=== PATIENT | female | born 1950 | race Two or more races ===

== ENCOUNTER 2018-07-30 18:06 | Inpatient (IN) | payer MEDICARE, MEDICAID ==
[~2018-07-30] VITALS: Ht 129.5 cm; Wt 60.3 kg
[2018-07-30] MEDS ORDERED: DILTIAZEM HCL 25 MG/5 ML VIAL IV ONE (20:00)
[2018-07-30 20:20] LABS: Eosinophils # (auto) 0.1 uL; Eosinophils % (auto) 0.7 % (0.0-7.0)
[2018-07-30 20:22] LABS: Basophils # (auto) 0 uL; Basophils % (auto) 0.4 % (0.0-2.0); Hematocrit 45.1 % (36.0-46.0); Hemoglobin 14.4 g/dL (12.2-16.2); Lymphocytes # (auto) 2.3 uL; Lymphocytes % (auto) 25.5 % (10.0-50.0); Mean Corpuscular Hemoglobin 26.3 pg (28.0-32.0); Mean Corpuscular Hgb Conc. 31.9 g/dL (32.0-36.0); Mean Corpuscular Volume 82.5 fL (80.0-100.0); Monocytes # (auto) 1.1 uL; Monocytes % (auto) 12.7 % (0.0-12.0); Neutrophils # (auto) 5.5 uL; Neutrophils % (auto) 60.7 % (37.0-80.0); Nucleated Red Blood Cells % 0.1 %; Platelet Count (auto) 254 10^3/uL (140-450); Red Blood Cells 5.47 10^6/uL (4.0-5.20); Red Cell Distribution Width 15.7 % (11.8-14.3)
[2018-07-30 20:33] LABS: Chloride 111 mmol/L (98-107); Potassium 3.9 mmol/L (3.5-5.1); Sodium 140 mmol/L (136-145)
[2018-07-30 20:39] LABS: Alanine Aminotransferase 24 U/L (13-56); Albumin 3.4 g/dL (3.4-5.0); Alkaline Phosphatase 68 U/L (45-117); Anion Gap 8 (5-15); Aspartate Aminotransferase 11 U/L (15-37); BUN/Creatinine Ratio 18.3; Bilirubin, Total 0.7 mg/dL (0.2-1.0); Blood Urea Nitrogen 17 mg/dL (7-18); Calcium 9.3 mg/dL (8.5-10.1); Carbon Dioxide 21 mmol/L (21-32); GFR African American 77 mL/min; GFR Non-African American 64 mL/min; Glucose 96 mg/dL (74-106); Total Protein 7.7 g/dL (6.4-8.2)
[2018-07-30] MEDS ORDERED: AZITHROMYCIN 500MG/ 250ML 250 ML IV ONE (20:45)
[2018-07-30 23:59] LABS: Urine Bacteria FEW /hpf (None Seen); Urine Blood 1+ /uL (Negative); Urine Mucus FEW (None Seen); Urine Specific Gravity 1.022 (1.001-1.035); Urine WBC 8 /hpf (0 - 5)
[2018-07-31] MEDS ORDERED: ONDANSETRON HCL 4 MG/2 ML VIAL IV PRN (00:30)
[2018-07-31] MEDS ORDERED: ALBUTEROL SULF 2.5 MG/0.5ML(0.5%) NEB SOLN NEB ONE (00:30)
[2018-07-31] MEDS ORDERED: ACETAMINOPHEN 325 MG TAB PO PRN (00:30)
[2018-07-31] MEDS ORDERED: cefTRIAXone 1GM/50ML D5W 50 ML IV ONE (00:30)
[2018-07-31] MEDS ORDERED: IPRATROPIUM BROM 0.5 MG/2.5ML INH SOL NEB ONE (00:30)
[2018-07-31] MEDS ORDERED: MORPHINE SULFATE 4 MG/ML SYR/VIAL IV PRN (00:30)
[2018-07-31 01:45] VITALS: BP 132/80
[2018-07-31] MEDS: ALBUTEROL SULF 2.5 MG/0.5ML(0.5%) NEB SOLN NEB SCH ×4 (05:23→18:00)
[2018-07-31] MEDS: IPRATROPIUM BROM 0.5 MG/2.5ML INH SOL NEB SCH ×3 (05:24→18:00)
[2018-07-31 07:30] LABS: Basophils # (auto) 0 uL; Eosinophils # (auto) 0.1 uL; Neutrophils # (auto) 4.3 uL
[2018-07-31 07:31] LABS: Basophils % (auto) 0.3 % (0.0-2.0); Eosinophils % (auto) 0.9 % (0.0-7.0); Hematocrit 39.2 % (36.0-46.0); Hemoglobin 12.9 g/dL (12.2-16.2); Lymphocytes # (auto) 2.5 uL; Lymphocytes % (auto) 31.5 % (10.0-50.0); Mean Corpuscular Hemoglobin 26.2 pg (28.0-32.0); Mean Corpuscular Hgb Conc. 32.9 g/dL (32.0-36.0); Mean Corpuscular Volume 79.5 fL (80.0-100.0); Monocytes % (auto) 12.8 % (0.0-12.0); Neutrophils % (auto) 54.5 % (37.0-80.0); Platelet Count (auto) 276 10^3/uL (140-450); Red Blood Cells 4.93 10^6/uL (4.0-5.20); Red Cell Distribution Width 15.4 % (11.8-14.3); White Blood Cell 7.8 10^3/uL (4.4-10.8)
[2018-07-31 07:48] LABS: Calcium 8.5 mg/dL (8.5-10.1); Potassium 3.6 mmol/L (3.5-5.1)
[2018-07-31 07:52] LABS: BUN/Creatinine Ratio 23.2
[2018-07-31] MEDS ORDERED: ASPirin 81 mg TAB ONE (08:39)
[2018-07-31] MEDS: LOSARTAN POTASSIUM 50 MG TAB PO SCH (08:58)
[2018-07-31] MEDS: AMIODARONE HCL 200 MG TAB PO SCH (08:58)
[2018-07-31] MEDS: ASPirin-EC 81 mg tab PO SCH (08:58)
[2018-07-31] MEDS: FAMOTIDINE 20 MG TAB PO SCH ×2 (08:58→22:19)
[2018-07-31] MEDS: cefTRIAXone 1GM/50ML D5W 50 ML IV SCH (09:02)
[2018-07-31] MEDS ORDERED: CARVEDILOL 3.125 MG TAB PO SCH (10:00)
--- NOTE | 2018-07-31 14:49 | NUR ---
Telemetry admit from ER TAN GUTIERREZ admitted to Telemetry unit after SBAR received. Patient oriented to ALLYSON kennedy RN, unit, room, bed, and unit policies regarding patient care and visiting hours. Patient now on continuous telemetry monitoring, tele box # 21 and telemetry reading on arrival to unit is Aflutter with a heart rate of 84. Patient encouraged to call if they need something. All questions and concerns addressed, patient verbalized understanding.
[2018-07-31 15:00] VITALS: BP 129/73
[2018-07-31] MEDS ORDERED: AZITHROMYCIN 250 MG TAB PO ONE (16:45)
--- NOTE | 2018-07-31 16:45 | NUR ---
MD CARRILLO AT BEDSIDE. NO NEW ORDERS AT THIS TIME.
--- NOTE | 2018-07-31 16:55 | NUR ---
Spoke with patient family Son Rocky, requested password: Rocky. Updated on patient status, all questions and concerns addressed. Asked patient son to bring in home medications, son verbalized understanding and stated he will be here to visit the patient around 7pm. Will continue to monitor.
[2018-07-31 17:00] VITALS: BP 140/78
--- NOTE | 2018-07-31 18:30 | NUR ---
RT NOTE: PT SITTING UPRIGHT IN BED WITH NO DISTRESS NOTED. PT DENIES SOB, PT ON ROOM AIR SPO2 96%. RR 16. PT STATED SHE WANTS TO HOLD THIS TX AND WILL TAKE THE NEXT SCHEDULED TX
--- NOTE | 2018-07-31 18:35 | NUR ---
SPOKE WITH PATIENT FAMILY, STATED THEY WILL BRING MEDICATION TOMORROW MORNING.
--- NOTE | 2018-07-31 19:35 | NUR ---
Opening Shift Note Assumed care of patient, awake and alert oriented x4. No S/S of distress/SOB noted. Bed is in lowest locked position with bed rails up x2 and call light is within reach of the patient. Instructed on POC and to call for assist PRN.
[2018-07-31 22:00] VITALS: BP 17/94
[2018-07-31] MEDS ORDERED: PATIENTS OWN MEDICATION (eliquis 5 MG) PO SCH (22:00)
[2018-07-31] MEDS: CARVEDILOL 3.125 MG TAB PO SCH (22:20)
[2018-07-31] MEDS: APIXABAN 5 MG TAB PO SCH (22:20)
[2018-08-01] MEDS: IPRATROPIUM BROM 0.5 MG/2.5ML INH SOL NEB SCH ×4 (00:59→18:59)
[2018-08-01] MEDS: ALBUTEROL SULF 2.5 MG/0.5ML(0.5%) NEB SOLN NEB SCH ×7 (00:59→18:59)
--- NOTE | 2018-08-01 01:00 | NUR ---
Patient placed on 2 liters Nasal cannula: Patient was having some wheezes and cough so patient placed on two liters nasal cannula for comfort. No S/S of distress or SOB at this time.
[2018-08-01 05:00] VITALS: BP 129/87
[2018-08-01 06:49] LABS: Basophils # (auto) 0 uL; Basophils % (auto) 0.3 % (0.0-2.0); Eosinophils # (auto) 0.1 uL; Lymphocytes # (auto) 2.7 uL; Monocytes # (auto) 0.7 uL; Nucleated Red Blood Cells % 0.1 %
[2018-08-01 06:52] LABS: Anion Gap 9 (5-15); BUN/Creatinine Ratio 17.2; Blood Urea Nitrogen 17 mg/dL (7-18); Calcium 8.4 mg/dL (8.5-10.1); Carbon Dioxide 22 mmol/L (21-32); Chloride 109 mmol/L (98-107); GFR African American 72 mL/min; GFR Non-African American 59 mL/min; Glucose 119 mg/dL (74-106); Hematocrit 39.7 % (36.0-46.0); Hemoglobin 12.7 g/dL (12.2-16.2); Lymphocytes % (auto) 31.8 % (10.0-50.0); Mean Corpuscular Hemoglobin 25.8 pg (28.0-32.0); Mean Corpuscular Volume 80.6 fL (80.0-100.0); Monocytes % (auto) 8.4 % (0.0-12.0); Neutrophils # (auto) 4.9 uL; Neutrophils % (auto) 58.5 % (37.0-80.0); Platelet Count (auto) 287 10^3/uL (140-450); Potassium 3.9 mmol/L (3.5-5.1); Red Blood Cells 4.92 10^6/uL (4.0-5.20); Red Cell Distribution Width 15.6 % (11.8-14.3); Sodium 140 mmol/L (136-145); White Blood Cell 8.4 10^3/uL (4.4-10.8)
--- NOTE | 2018-08-01 06:58 | NUR ---
Closing note: Patient is resting in bed awake alert oriented x4. No s/s of distress sob noted. Bed is in lowest locked position with bed rails up x2 and call light is within reach of the patient. Will endorse care to day shift nurse.
--- NOTE | 2018-08-01 07:50 | NUR ---
Opening Shift Note Assumed care of patient, patient is awake, alert, and oriented x4, however patient has periods of confusion. Speech is slightly slurred and patient is rambling. No S/S of distress/SOB, or pain noted. Bed is in lowest locked position with bed rails up x2 and call light is within reach of the patient. Discussed POC with patient, patient verbalized understanding. Will continue to monitor q1 hour and prn.
[2018-08-01 09:00] VITALS: BP 127/78
[2018-08-01] MEDS: cefTRIAXone 1GM/50ML D5W 50 ML IV SCH (09:04)
[2018-08-01] MEDS: APIXABAN 5 MG TAB PO SCH ×2 (11:08→22:50)
[2018-08-01] MEDS: AZITHROMYCIN 250 MG TAB PO SCH (11:09)
[2018-08-01] MEDS: CARVEDILOL 3.125 MG TAB PO SCH ×2 (11:10→22:50)
[2018-08-01] MEDS: ASPirin-EC 81 mg tab PO SCH (11:11)
[2018-08-01] MEDS: FAMOTIDINE 20 MG TAB PO SCH ×2 (11:11→22:50)
[2018-08-01] MEDS: AMIODARONE HCL 200 MG TAB PO SCH (11:11)
[2018-08-01] MEDS: LOSARTAN POTASSIUM 50 MG TAB PO SCH (11:12)
--- NOTE | 2018-08-01 12:00 | NUR ---
MED REC FAMILY AT BEDSIDE. TO HER SON BROUGHT IN PATIENT MEDICATIONS. MED REC COMPLETED. DISCUSSED POC WITH PATIENT AND PATIENT FAMILY. PATIENT AND FAMILY VERBALIZED UNDERSTANDING. WILL CONTINUE TO MONITOR Q1 HOUR AND PRN.
[2018-08-01 13:23] VITALS: BP 123/75
[2018-08-01] MEDS ORDERED: SPIR25TA8 PO (15:32)
[2018-08-01] MEDS ORDERED: SIMV-13 PO (15:32)
[2018-08-01] MEDS ORDERED: CARV3.1240 PO (15:32)
[2018-08-01] MEDS ORDERED: LOSA-49 PO (15:32)
[2018-08-01 17:37] VITALS: BP 134/82
--- NOTE | 2018-08-01 18:48 | NUR ---
END OF SHIFT PATIENT IS RESTING IN BED. NO S/S OF DISTRESS, SOB, OR PAIN. RESPIRATIONS EVEN AND UNLABORED. BED IS IN LOWEST POSITION, SIDE RAILS UP X2, AND CALL LIGHT WITHIN REACH. WILL ENDORSE CARE TO LEHR OPERATOR R.N.
--- NOTE | 2018-08-01 19:15 | NUR ---
OPEN SHIFT NOTE PATIENT IS ALERT AND ORIENTED X4, ON ROOM AIR, 22 GAUGE IV IN THE LEFT AC IS INTACT AND PATENT. POC DISCUSSED AND QUESTIONS ANSWERED. BED IS LOCKED IN LOWEST POSITION WITH SIDE RAILS UP X2 FOR SAFETY. CALL LIGHT IS WITHIN REACH, WILL CONTINUE TO ROUND Q1HR AND PRN.
[2018-08-01 22:00] VITALS: BP 139/76
[2018-08-02 04:54] VITALS: BP 133/84
[2018-08-02] MEDS ORDERED: ASCO500T11 PO (05:53)
[2018-08-02] MEDS: IPRATROPIUM BROM 0.5 MG/2.5ML INH SOL NEB SCH ×3 (06:23→13:38)
[2018-08-02] MEDS: ALBUTEROL SULF 2.5 MG/0.5ML(0.5%) NEB SOLN NEB SCH ×5 (06:23→13:38)
[2018-08-02 06:55] LABS: Basophils # (auto) 0 uL; Eosinophils # (auto) 0.1 uL; Eosinophils % (auto) 1.1 % (0.0-7.0); Lymphocytes # (auto) 2.8 uL; Neutrophils % (auto) 56.6 % (37.0-80.0)
[2018-08-02 06:57] LABS: Basophils % (auto) 0.5 % (0.0-2.0); Hematocrit 39.1 % (36.0-46.0); Hemoglobin 12.7 g/dL (12.2-16.2); Lymphocytes % (auto) 30.7 % (10.0-50.0); Mean Corpuscular Hemoglobin 25.6 pg (28.0-32.0); Mean Corpuscular Hgb Conc. 32.5 g/dL (32.0-36.0); Mean Corpuscular Volume 78.9 fL (80.0-100.0); Monocytes % (auto) 11.1 % (0.0-12.0); Neutrophils # (auto) 5.1 uL; Platelet Count (auto) 304 10^3/uL (140-450); Red Blood Cells 4.95 10^6/uL (4.0-5.20); Red Cell Distribution Width 15.5 % (11.8-14.3); White Blood Cell 9.1 10^3/uL (4.4-10.8)
[2018-08-02 07:08] LABS: Albumin 2.8 g/dL (3.4-5.0); Anion Gap 9 (5-15); Blood Urea Nitrogen 14 mg/dL (7-18); Calcium 8.6 mg/dL (8.5-10.1); Carbon Dioxide 24 mmol/L (21-32); Chloride 109 mmol/L (98-107); Glucose 83 mg/dL (74-106); Potassium 3.8 mmol/L (3.5-5.1); Sodium 142 mmol/L (136-145)
[2018-08-02 07:12] LABS: Alkaline Phosphatase 57 U/L (45-117); Aspartate Aminotransferase 9 U/L (15-37); BUN/Creatinine Ratio 18.4; Bilirubin, Total 0.4 mg/dL (0.2-1.0); GFR African American 97 mL/min; GFR Non-African American 80 mL/min
[2018-08-02 07:18] LABS: Alanine Aminotransferase 21 U/L (13-56)
--- NOTE | 2018-08-02 07:33 | NUR ---
PATIENT IS RESTING WITH EYES CLOSED WITH NO DISTRESS NOTED, RESPIRATIONS ARE UNLABORED, WAS EASILY AWAKEN, DENIES DIFFICULTY BREATHING, SO SOB, HAS WHEEZING UPON EXPIRATION,ON ROOM AIR, VS ARE STABLE, PHYSICAL ASSESSMENT PERFORMED AND SKIN INTACT, PATIENT STABLE.
[2018-08-02 08:30] VITALS: BP 139/73
[2018-08-02] MEDS: cefTRIAXone 1GM/50ML D5W 50 ML IV SCH (09:23)
[2018-08-02] MEDS: LOSARTAN POTASSIUM 50 MG TAB PO SCH (09:25)
[2018-08-02] MEDS: CARVEDILOL 3.125 MG TAB PO SCH (09:25)
[2018-08-02] MEDS: ASPirin-EC 81 mg tab PO SCH (09:26)
[2018-08-02] MEDS: FAMOTIDINE 20 MG TAB PO SCH (09:26)
[2018-08-02] MEDS: APIXABAN 5 MG TAB PO SCH (09:26)
[2018-08-02] MEDS: AZITHROMYCIN 250 MG TAB PO SCH (09:27)
[2018-08-02] MEDS: AMIODARONE HCL 200 MG TAB PO SCH (09:28)
[2018-08-02] MEDS ORDERED: Ensure Enlive Strawberry 8oz Bottle PO SCH (12:00)
[2018-08-02 12:30] VITALS: BP 122/84
--- NOTE | 2018-08-02 14:13 | NUR ---
I SPOKE TO PATIENT SON/ JODY HE VERBALIZED HE WOULD RN ICU HIS MOTHER ABOUT 5:30.
--- NOTE | 2018-08-02 17:23 | NUR ---
patient alert and oriented x4 with no distress noted, Rocky/son arrived to take patient home, all forms signed, belongings collected, pt denies any sob no pain, iv and tele monitor removed and intact, pt stable. pt verbalized understanding to follow up with primary physicians as ordered.
== END 2018-08-02 17:26 | disposition home or self-care (01) | DRG 201 ==
LOC: ER 18:06 → EDBD 18:06 → TELE 07-31 00:59 → TELE-CENTR 07-31 14:47
PROVIDERS: ADMIT Nurse Practitioner Family; ATTEND Internal Medicine
DX: I48.92 Unspecified atrial flutter (principal); N17.0 Acute kidney failure with tubular necrosis; J45.901 Unspecified asthma with (acute) exacerbation; J20.9 Acute bronchitis, unspecified; E44.0 Moderate protein-calorie malnutrition; I48.91 Unspecified atrial fibrillation; D68.69 Other thrombophilia; J44.9 Chronic obstructive pulmonary disease, unspecified; E78.5 Hyperlipidemia, unspecified; E05.90 Thyrotoxicosis, unspecified without thyrotoxic crisis or storm; B34.9 Viral infection, unspecified; I12.9 Hypertensive chronic kidney disease with stage 1 through stage 4 chronic kidney disease, or unspecified chronic kidney disease; I44.30 Unspecified atrioventricular block; J06.9 Acute upper respiratory infection, unspecified; N18.9 Chronic kidney disease, unspecified; N39.0 Urinary tract infection, site not specified; R06.03 Acute respiratory distress; Z72.0 Tobacco use; Z68.35 Body mass index [BMI] 35.0-35.9, adult; Z79.899 Other long term (current) drug therapy
CPT/HCPCS: 36415; 71045; 76536; 80048; 80053; 81001; 83880; 84443; 84484; 85025; 85379; 87086; 87804; 93005; 93306; 94640; 94761; 96374; 96375; G0378; J0696